=== PATIENT | female | born 1965 | race Caucasian/White ===

== ENCOUNTER 2023-01-14 13:30 | Emergency (ER) | payer OTHER ==
[2023-01-14] VITALS (9 sets, daily range): BP systolic 124–184; BP diastolic 68–92
[~2023-01-14] VITALS: Ht 172.7 cm; Wt 132.2 kg
[2023-01-14] MEDS ORDERED: LISINOPRIL10 MG PO (14:14)
[2023-01-14] MEDS ORDERED: PROTONIX40 M2 PO (14:14)
[2023-01-14 15:06] LABS: BASO% 0.4 % (0-3); EOS% 1.6 % (0-8); HEMATOCRIT 41.9 % (37.0-47.0); HEMOGLOBIN 13.8 g/dl (12.0-16.0); IMMATURE GRANULOCYTES 0.1 % (0.0-5.0); LYMPH% 23.3 % (15-41); MEAN CELL VOLUME 92.9 fL CALC (80.0-100.0); MEAN CORPUSCULAR HGB 30.6 pG CALC (26.0-32.0); MEAN CORPUSCULAR HGB CONC 32.9 g/dL CAL (32.0-36.0); NEUT# 4.7 thou/uL (2.00-7.15); NEUT% 68.6 % (42-76); RED BLOOD COUNT 4.51 mill/uL (4.20-5.60); RED CELL DISTRI WIDTH 12.6 % (11.5-15.5)
[2023-01-14 15:12] LABS: URINE BILIRUBIN - DIPSTICK Negative (NEGATIVE); URINE BLOOD DIPSTICK Negative (NEGATIVE); URINE GLUCOSE - DIPSTICK Negative (NEGATIVE); URINE KETONE Negative (NEGATIVE); URINE LEUK ESTERASE Negative (NEGATIVE); URINE NITRITE - DIPSTICK Negative (Negative); URINE PROTEIN - DIPSTICK Negative (NEG-TRACE); URINE UROBILINOGEN - DIPSTICK 0.2 E.U./dL (0.2)
[2023-01-14 15:14] LABS: URINE COLOR Yellow
[2023-01-14 15:19] LABS: INTERNATIONAL NORMALIZED RATIO 1.1 RATIO (0.7-1.3); PROTHROMBIN TIME 10.4 SECONDS (9.0-12.5)
[2023-01-14 15:21] LABS: ALBUMIN 4.7 g/dL (3.2-5.0); ALKALINE PHOSPHATASE 217 u/l (38-126); BILIRUBIN, TOTAL 0.6 mg/dL (0.02-1.3); BUN 24 mg/dL (7-17); BUN/CREATININE RATIO 31 (12-20 (CALC)); CARBON DIOXIDE 21 mmol/l (22-30); CHLORIDE 106 mmol/l (95-108); CREATININE 0.8 mg/dL (0.5-1.0); GFR FOR AFR.AMER. > 60 ML/MIN (>=60 (CALC)); GFR OTHER RACES > 60 ML/MIN (>=60 (CALC)); SGOT/AST 50 u/l (14-36)
[2023-01-14 15:25] LABS: ANION GAP 15 (6-22 (CALC)); SODIUM 138 mmol/l (137-146)
[2023-01-14 15:32] LABS: D-DIMER 9.2 mg/L (0.19-0.60)
== END 2023-01-14 17:13 | disposition short-term general hospital (02) | DRG 176 ==
LOC: ED 13:30
PROVIDERS: Nurse Practitioner
DX: I26.92 Saddle embolus of pulmonary artery without acute cor pulmonale (principal); I10 Essential (primary) hypertension; Z95.0 Presence of cardiac pacemaker; Z96.641 Presence of right artificial hip joint; Z86.718 Personal history of other venous thrombosis and embolism
CPT/HCPCS: J1644; Q9967